=== PATIENT | female | born 1935 | race African-American/Black ===

== ENCOUNTER 2020-01-23 08:53 | Emergency (ER) | payer MEDICARE, OTHER ==
[~2020-01-23] VITALS: Ht 170.2 cm; Wt 77.3 kg
[~2020-01-23 08:53] MED LIST: LOSA25TA71 PO; [UNRECOGNIZED DRUG - REMARK] PO
[2020-01-23] MEDS ORDERED: IBUPROFEN 600 MG TABLET PO ONE (09:15)
[2020-01-23 10:54] VITALS: BP 152/73
== END 2020-01-23 11:19 | disposition home or self-care (01) ==
LOC: EMS 08:58
DX: M25.532 Pain in left wrist (principal); M79.89 Other specified soft tissue disorders
CPT/HCPCS: 73110-TC; 73130-TC; Z7502; Z7610

== ENCOUNTER 2020-01-30 09:19 | Emergency (ER) | payer MEDICARE ==
[~2020-01-30] VITALS: Ht 170.2 cm; Wt 75.0 kg
[2020-01-30] MEDS ORDERED: IBUPROFEN 600 MG TABLET PO ONE (10:15)
[2020-01-30 11:59] VITALS: BP 113/85
== END 2020-01-30 12:10 | disposition home or self-care (01) ==
LOC: EMS 09:22
DX: M19.012 Primary osteoarthritis, left shoulder (principal)
CPT/HCPCS: 93971; 73030-TC; 73110-TC; Z7502; Z7610

== ENCOUNTER 2020-10-01 14:04 | Emergency (ER) | payer MEDICARE, OTHER ==
[~2020-10-01] VITALS: Ht 157.5 cm; Wt 68.2 kg
[~2020-10-01 14:04] MED LIST changes: +LOSA25TA21 PO; -LOSA25TA71 PO
[2020-10-01 14:58] VITALS: BP 145/70
[2020-10-01 15:24] LABS: BASOPHILS % (AUTO) 0.6 % (0.0-2.0); EOSINOPHILS % (AUTO) 0.1 % (1.0-6.0); HEMATOCRIT 40.8 % (36-46); HEMOGLOBIN 13.4 g/dL (12.0-16.0); LYMPHOCYTES # (AUTO) 1.7 K/uL (1.0-4.8); MEAN CORPUSCULAR HGB CONC 32.9 G/dL (31.0-37.0); MEAN CORPUSCULAR VOLUME 94 fL (80-100); MONOCYTES # (AUTO) 0.6 K/uL (0.1-1.0); MONOCYTES % (AUTO) 5.4 % (2.0-9.0); NEUTROPHILS # (AUTO) 8.9 K/uL (1.8-7.7); NEUTROPHILS % (AUTO) 78.9 % (40.0-70.0); PLATELET COUNT (AUTO) 245 K/uL (150-450); RED BLOOD CELL COUNT(AUTO) 4.34 MIL/uL (4.00-5.20); RED CELL DISTRIBUTION WIDTH 13.1 % (11.5-14.5)
[2020-10-01 15:39] LABS: ANION GAP 9 mmol/L (8-16); CALCIUM, TOTAL 9.7 mg/dL (8.8-10.5); CARBON DIOXIDE 31 mmol/L (22-29); CHLORIDE 98 mmol/L (98-107); CREATININE 0.73 mg/dL (0.60-1.30); GLUCOSE,RANDOM 102 mg/dL (70-110); POTASSIUM 3.6 mmol/L (3.5-5.1); SODIUM SERUM 138 mmol/L (136-145); UREA NITROGEN, BLOOD 14 mg/dL (7-18)
[2020-10-01 15:40] LABS: GLOMERULAR FILTR. RATE CALC > 60 mL/min (>60)
[2020-10-01 15:44] LABS: ALANINE AMINOTRANSFERASE 13 U/L (12-78); ALBUMIN 3.9 g/dL (3.4-5.0); ALKALINE PHOSPHATASE 69 U/L (46-116); ASPARTATE AMINOTRANSFERASE 18 U/L (15-37); TOTAL PROTEIN, SERUM 8.1 g/dL (6.4-8.2)
[2020-10-01] MEDS ORDERED: IOHEXOL 350 MG/ML 100 ML VIAL ONE (16:26)
[2020-10-01] MEDS ORDERED: SODIUM CHLORIDE 0.9% 100 ML ONE (16:26)
[2020-10-01] MEDS ORDERED: KETOROLAC TROMETHAMINE 30 MG/ML VIAL IM ONE (18:15)
== END 2020-10-01 18:46 | disposition home or self-care (01) ==
LOC: EMS 14:09
DX: S39.012A Strain of muscle, fascia and tendon of lower back, initial encounter (principal); X58.XXXA Exposure to other specified factors, initial encounter; Y93.89 Activity, other specified; Y92.89 Other specified places as the place of occurrence of the external cause; Y99.8 Other external cause status
CPT/HCPCS: 36415; 71045; 71260; 80053; 85025; 93005; 96372; 99285; A9575; J1885; J7050